=== PATIENT | male | born 1955 | race Caucasian/White ===

== ENCOUNTER → 2018-01-11 | Outpatient (CLI) | payer OTHER ==
[~2018-01-11] MED LIST: ABAC300; BYDUREON2 MG; CARV3.125 PO; CIPR500 PO; Carvedilol12.5 MG; GLIP5 PO; HYDCHL25; HYDRA50; HYDRA50 PO; LISI5 PO; MULTI VITAMIN1 EACH; NORT10; OXYACE5T PO; PIOG45; PSYL5.85P; RXOXYACE PO; TRAGENTA; VITAMIN D-32000 UNIT; ZESTRIL40 MG
== END ==
LOC: LAB SRC 11:12 → LAB SHORT 11:12
DX: E11.65 Type 2 diabetes mellitus with hyperglycemia (principal); E78.5 Hyperlipidemia, unspecified; I10 Essential (primary) hypertension
CPT/HCPCS: 82043